=== PATIENT | male | born 2005 | race Two or more races ===

== ENCOUNTER 2024-07-13 15:07 | Emergency (ER) | payer OTHER ==
[~2024-07-13] VITALS: Ht 172.7 cm; Wt 75.0 kg
[2024-07-13 15:47] LABS: COVID AG,FIA SOURCE NASAL SWAB
[2024-07-13 15:48] LABS: BASOPHILS % (AUTO) 0.1 % (0.0-2.0); EOSINOPHILS % (AUTO) 0 % (1.0-6.0); HEMATOCRIT 41.3 % (41-53); HEMOGLOBIN 13.8 g/dL (13.5-17.5); LYMPHOCYTES # (AUTO) 0.7 K/uL (1.0-4.8); LYMPHOCYTES % (AUTO) 5.5 % (22.0-44.0); MEAN CORPUSCULAR HEMOGLOBIN 29.8 pg (26.0-34.0); MEAN CORPUSCULAR HGB CONC 33.4 G/dL (31.0-37.0); MEAN CORPUSCULAR VOLUME 89 fL (80-100); MONOCYTES # (AUTO) 0.8 K/uL (0.1-1.0); MONOCYTES % (AUTO) 6.1 % (2.0-9.0); NEUTROPHILS # (AUTO) 11.5 K/uL (1.8-7.7); PLATELET COUNT (AUTO) 315 K/uL (150-450); RED BLOOD CELL COUNT(AUTO) 4.62 MIL/uL (4.50-5.90); RED CELL DISTRIBUTION WIDTH 14.2 % (11.5-14.5)
[2024-07-13 15:50] LABS: NEUTROPHILS % (AUTO) 88.3 % (40.0-70.0)
[2024-07-13 15:56] LABS: ANION GAP 8 mmol/L (8-16); CARBON DIOXIDE 28 mmol/L (22-29); CHLORIDE 101 mmol/L (98-107); GLOMERULAR FILTR. RATE CALC > 60 mL/min (>60); GLUCOSE,RANDOM 112 mg/dL (70-110); POTASSIUM 3.9 mmol/L (3.5-5.1); SODIUM SERUM 137 mmol/L (136-145); UREA NITROGEN, BLOOD 7 mg/dL (7-18)
[2024-07-13 16:00] LABS: ALANINE AMINOTRANSFERASE 39 U/L (12-78); ALBUMIN 3.9 g/dL (3.4-5.0); ALKALINE PHOSPHATASE 80 U/L (46-116); ASPARTATE AMINOTRANSFERASE 52 U/L (15-37); LIPASE 24 U/L (16-77); TOTAL PROTEIN, SERUM 7.3 g/dL (6.4-8.2)
[2024-07-13 16:04] LABS: LACTIC ACID 1.7 mmol/L (0.4-2.0)
[2024-07-13 16:08] LABS: PLATELET MORPHOLOGY COMMENT LARGE PLTS PRESENT; RBC MORPHOLOGY COMMENT NORMAL RBC MORPH
[2024-07-13 16:18] LABS: INFLUENZA TYPE A NEGATIVE FOR TYPE A (NEGATIVE); INFLUENZA TYPE B NEGATIVE FOR TYPE B (NEGATIVE); SARS-COV2 (COVID) ANTIGEN,FIA Negative (Negative)
[2024-07-13] MEDS: SODIUM CHLORIDE 0.9% 2,000 ML IV ONE (16:21)
[2024-07-13] MEDS: KETOROLAC TROMETHAMINE 30 MG/ML VIAL IVP ONE (16:22)
[2024-07-13] MEDS: ONDANSETRON HCL 4 MG/2 ML VIAL IVP ONE (16:22)
[2024-07-13] MEDS: ACETAMINOPHEN 1000 MG/ISO-OSM 100 ML IV ONE (16:23)
[2024-07-13] MEDS: FAMOTIDINE 20 MG/2 ML VIAL IVP ONE (17:16)
[2024-07-13 17:45] VITALS: BP 118/72; PULSE 99; RESP 18; TEMP 99.1; O2SAT 99
[2024-07-13] MEDS ORDERED: ONDA-104 PO (17:52)
[2024-07-13] MEDS ORDERED: ACET-3385 PO (17:52)
[2024-07-13] MEDS ORDERED: IBUP-1492 PO (17:52)
[2024-07-13 17:59] LABS: APPEARANCE,URINE CLEAR (CLEAR); BILIRUBIN,URINE NEGATIVE (NEGATIVE); COLOR,URINE LIGHT YELLOW (YELLOW); GLUCOSE, URINE (UA) NEGATIVE (NEGATIVE); KETONES,URINE NEGATIVE (NEGATIVE); LEUKOCYTE ESTERASE ,URINE NEGATIVE (NEGATIVE); NITRATE,URINE NEGATIVE (NEGATIVE); OCCULT BLOOD,URINE NEGATIVE (NEGATIVE); PH,URINE 6.5 (5.0-8.0); PROTEIN,URINE NEGATIVE (NEGATIVE); SPECIFIC GRAVITIY, URINE 1.012 (1.003-1.030); UROBILINOGEN,URINE <=1.0 mg/dL (<=1.0)
== END 2024-07-13 18:19 | disposition home or self-care (01) ==
LOC: EMS 15:07
DX: K52.9 Noninfective gastroenteritis and colitis, unspecified (principal); Z20.822 Contact with and (suspected) exposure to COVID-19
CPT/HCPCS: 99284; 96365; 96375; 71045; 87426; 80048; 80076; 81003; 83605; 83690; 85025; 87040; 87804; 36415; J1885; J3490; J2405; J7030; J0131